=== PATIENT | female | born 1985 | race Caucasian/White ===

== ENCOUNTER 2019-06-05 16:13 | Inpatient (IN) | payer BC ==
[~2019-06-05] VITALS: Ht 162.6 cm; Wt 64.5 kg
[2019-06-05 17:08] VITALS: BP 113/68; PULSE 76; TEMP 98.4
[2019-06-05 17:16] LABS: BASO # 0.1 (0.0-0.2); BASO % 0.5 % (0.0-2.0); EOS # 0.1 (0.0-0.7); EOS % 0.6 % (0-4.0); GRAN # 7.3 (1.4-6.5); HEMATOCRIT 37.3 % (37.0-47.0); HEMOGLOBIN 12.8 g/dl (12.5-16.0); LYMPH # 2.1 (1.2-3.4); LYMPH % 20.7 % (20.0-51.0); MEAN CELL VOLUME 89 fl (80.0-100.0); MEAN CORPUSCULAR HEMOGLOBIN 30 pg (27.0-31.0); MEAN CORPUSCULAR HGB CONC 34 g/dl (33.0-37.0); MEAN PLATELET VOLUME 11.3 fl (7.4-10.4); MONO # 0.7 (0.1-0.6); MONO % 6.6 % (1.7-9.3); PLATELET COUNT 170 K/mm3 (130-400); RED BLOOD COUNT 4.21 M/mm3 (4.10-5.30); REDCELL DISTRIBUTION WIDTH-CV 13.3 % (11.5-14.5)
[2019-06-05] MEDS ORDERED: PRENATAL FORMU1 EAC3 PO (17:18)
[2019-06-05 17:26] LABS: ALBUMIN 4.1 gm/dL (3.5-5.0); BILIRUBIN,TOTAL 0.4 mg/dL (0.0-1.0); CREATININE, serum 0.42 (0.52-1.25); POTASSIUM 3.6 mmol/L (3.4-5.0); TOTAL PROTEIN 7.4 gm/dL (6.4-8.2)
[2019-06-05 17:35] VITALS: BP 113/68; PULSE 76; TEMP 98.4
[2019-06-05 18:55] LABS: PROTHROMBIN TIME 12.2 SECONDS (9.7-12.8)
[2019-06-05 19:15] VITALS: BP 102/70; PULSE 81; TEMP 98.3
[2019-06-06 02:00] VITALS: BP 88/52; PULSE 73; TEMP 98.1
[2019-06-06 07:30] VITALS: BP 99/65; PULSE 72; TEMP 98.8
[2019-06-06] MEDS ORDERED: LOVENOX 6060 MG/0.6 SQ (08:45)
== END 2019-06-06 10:00 | disposition home or self-care (01) | DRG 832 ==
LOC: COL.ER 16:13 → OB 16:34
PROVIDERS: Physician Assistant; ADMIT Obstetrics & Gynecology
DX: O22.32 Deep phlebothrombosis in pregnancy, second trimester (principal); I82.4Z1 Acute embolism and thrombosis of unspecified deep veins of right distal lower extremity; Z3A.17 17 weeks gestation of pregnancy
CPT/HCPCS: 99222; G0378; J1650

== ENCOUNTER → 2019-06-05 | Outpatient (CLI) | payer BC ==
[~2019-06-05] MED LIST: LOVENOX 6060 MG/0.6 SQ; PRENATAL FORMU1 EAC3 PO
== END ==
LOC: COL.VAS 09:00
DX: I82.461 Acute embolism and thrombosis of right calf muscular vein (principal)